=== PATIENT | female | born 1990 | race Caucasian/White ===

== ENCOUNTER 2018-04-13 08:05 | Emergency (ER) | payer MEDICAID ==
[~2018-04-13] VITALS: Ht 149.9 cm; Wt 52.6 kg
--- NOTE | 2018-04-13 08:05 | NUR ---
PATIENT BIBA TO BED 3 AT THIS TIME.
[2018-04-13 08:09] VITALS: BP 118/78
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
--- NOTE | 2018-04-13 08:28 | NUR ---
Patient being evaluated by DR GIRON at bedside.
--- NOTE | 2018-04-13 08:49 | NUR ---
x ray at bedside.
[2018-04-13] MEDS ORDERED: IBUPROFEN 400 MG TAB PO ONE (09:25)
--- NOTE | 2018-04-13 09:30 | NUR ---
Crutches dispensed. Taught proper use, patient returned demo.
[2018-04-13 09:32] VITALS: BP 114/76
--- NOTE | 2018-04-13 09:32 | NUR ---
Patient discharged with v/s stable. Written and verbal after care instructions given and explained. Patient alert, oriented and verbalized understanding of instructions. Ambulatory with CRUTCHES. All questions addressed prior to discharge. ID band removed. Patient advised to follow up with PMD. Rx of NAPROSYN given. Patient educated on indication of medication including possible reaction and side effects. Opportunity to ask questions provided and answered.
== END 2018-04-13 09:32 | disposition home or self-care (01) ==
LOC: MED 08:05
DX: S80.11XA Contusion of right lower leg, initial encounter (principal); S00.212A Abrasion of left eyelid and periocular area, initial encounter; V43.52XA Car driver injured in collision with other type car in traffic accident, initial encounter; Y93.19 Activity, other involving water and watercraft; Y92.488 Other paved roadways as the place of occurrence of the external cause; Y99.8 Other external cause status
CPT/HCPCS: 73590; 99284; Q0092